=== PATIENT | female | born 1990 | race Hispanic/Latino ===

== ENCOUNTER 2017-05-21 10:59 | Emergency (ER) | payer OTHER ==
[2017-05-21 11:06] VITALS: TEMP 97.7
[2017-05-21] MEDS ORDERED: Sodium Chloride 0.9% 1,000 ML IV STA (11:14)
--- NOTE | 2017-05-21 11:51 | ED PDOC ---
HPI: Back Time Seen by Provider: 05/21/17 11:05 Chief Complaint (Nursing): Back Pain Chief Complaint (Provider): back pain History Per: Patient History/Exam Limitations: no limitations Onset/Duration Of Symptoms: Hrs (1), Sudden Onset Quality Of Discomfort: Sharp Severity: Moderate Previous Symptoms: Back Pain Exacerbating Factor(s): Turning, Movement, Sitting, Standing Additional Complaint(s): 26yo female c/o low and mid back pain onset acutely while at work prior to arrival. Was sitting in a chair at desk, turned and had sudden spasm/back which prevented her from moving mid/lower back. Denies radiation of pain to legs or arms. Denies neck pain, incontinence, urinary retention, fever, or weakness/ numbness. States has history of low back problems specifically around her menstration. 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 Past Medical History Reviewed: Historical Data, Vital Signs Vital Signs: Last Vital Signs Temp 97.7 F 05/21/17 11:03 Pulse 83 05/21/17 11:03 Resp 19 05/21/17 11:03 BP 122/76 05/21/17 11:03 Pulse Ox 100 05/21/17 11:03 - Medical History PMH: Back Problems - Surgical History Surgical History: No Surg Hx - Family History Family History: States: Other Other Family History: scoliosis - Living Arrangements Living Arrangements: With Friends/Others - Social History Current smoker - smoking cessation education provided: No Alcohol: Social - Home Medications Home Medications: Ambulatory Orders Medication Instructions Recorded Cyclobenzaprine [Cyclobenzaprine 10 mg PO Q8 PRN #9 tab 05/21/17 HCl] Naproxen [Naprosyn] 500 mg PO BID PRN #14 tablet 05/21/17 - Allergies Allergies/Adverse Reactions: Allergies Allergy/AdvReac Type Severity Reaction Status Date / Time Latex, Natural Rubber Allergy RASH Verified 05/21/17 11:02 Review of Systems ROS Statement: Except As Marked, All Systems Reviewed And Found Negative Constitutional: Negative for: Fever, Chills Cardiovascular: Negative for: Chest Pain, Orthopnea Respiratory: Negative for: Cough, Shortness of Breath Gastrointestinal: Negative for: Abdominal Pain Genitourinary Female: Negative for: Dysuria Musculoskeletal: Positive for: Back Pain. Negative for: Arm Pain, Leg Pain Skin: Negative for: Rash, Lesions Neurological: Negative for: Weakness, Numbness, Headache, Dizziness Psych: Positive for: Anxiety Physical Exam - Reviewed Nursing Documentation Reviewed: Yes Vital Signs Reviewed: Yes - Physical Exam Appears: Positive for: Well, Non-toxic, No Acute Distress Head Exam: Positive for: ATRAUMATIC, NORMAL INSPECTION, NORMOCEPHALIC Skin: Positive for: Normal Color, Warm, DRY Neck: Positive for: Normal, Painless ROM Cardiovascular/Chest: Negative for: Tachycardia Respiratory: Negative for: Respiratory Distress Pulses-Radial (L): 3+/4+ Pulses-Radial (R): 3+/4+ Gastrointestinal/Abdominal: Positive for: Soft. Negative for: Tenderness, Guarding Back: Positive for: Decreased ROM, Muscle Spasm Extremity: Negative for: Calf Tenderness, Swelling Neurologic/Psych: Positive for: Alert, Oriented, Gait (slow but steady), Other ( strength lower ext 5/5 b/l). Negative for: Motor/Sensory Deficits - Laboratory Results Result Diagrams: 05/21/17 12:23 05/21/17 12:23 - ECG O2 Sat by Pulse Oximetry: 100 Medical Decision Making Medical Decision Making: labs unremarkable Imaging reviewed and no acute fractures or dislocation, +mild scoliosis Improved over course of ED stay. Ambulated to bathroom. There was no signs neurologic emergency on re-eval and hence discharge with followup recommended. Father (physician in [place]) stated he arranged an MRI for her in the morning. Disposition - Clinical Impression Clinical Impression: Back pain - Patient ED Disposition Is Patient to be Admitted: No Counseled Patient/Family Regarding: Studies Performed, Diagnosis, Need For Followup - Disposition Referrals: Judah Soriano DO [[facility]] - Disposition: Routine/Home Disposition Time: 14:01 Condition: STABLE Additional Instructions: Return to ER for any worse or new symptoms. Recommend repeat bloodwork in 10days to assure resolution of mild hypercalcemia and abnormal LFTs. Recommend outpatient MRI if symptoms persist. Avoid heavy exertion or lifting until all symptoms resolve. Prescriptions: Cyclobenzaprine [Cyclobenzaprine HCl] 10 mg PO Q8 PRN #9 tab PRN Reason: Muscle Spasm Naproxen [Naprosyn] 500 mg PO BID PRN #14 tablet PRN Reason: Pain, Moderate (4-7) Instructions: Cyclobenzaprine (By mouth), Acute Low Back Pain (ED) Forms: [facility] ([employer])
[2017-05-21 12:27] LABS: BASO % 1.1 % (0.0-2.0); EOS % 0.6 % (0.0-4.0); HEMATOCRIT 40.5 % (34.0-47.0); LYMPH # 1.2 K/uL (1.0-4.3); LYMPH % 27.2 % (20.0-40.0); MEAN CELL VOLUME 98.4 fl (81.0-99.0); MEAN CORPUSCULAR HEMOGLOBIN 34.2 pg (27.0-31.0); MEAN CORPUSCULAR HGB CONC 34.8 g/dL (33.0-37.0); MEAN PLATELET VOLUME 8.3 fl (7.2-11.7); MONO # 0.5 K/uL (0.0-0.8); MONO % 11.7 % (0.0-10.0); NEUT # 2.6 K/uL (1.8-7.0); NEUT % 59.4 % (50.0-75.0); NRBC % 0.2 % (0.0-0.0); RED CELL DISTRIBUTION WIDTH 12.2 % (11.5-14.5); WHITE BLOOD COUNT 4.3 K/uL (4.8-10.8)
[2017-05-21 12:36] LABS: LIPASE 125 U/L (23-300); MAGNESIUM 1.9 MG/DL (1.6-2.3)
[2017-05-21 12:39] LABS: ALKALINE PHOSPHATASE 37 U/L (38-126); ALT/SGPT 53 U/L (9-52); AST/SGOT 39 U/L (14-36); BILIRUBIN,TOTAL 0.6 mg/dl (0.2-1.3); BLOOD UREA NITROGEN 12 mg/dl (7-17); CALCIUM 10.5 mg/dL (8.4-10.2); CARBON DIOXIDE 27 mmol/L (22-30); CHLORIDE 106 mmol/L (98-107); GFR AFRICAN-AMERICAN > 60; GLUCOSE,RANDOM 93 mg/dL (65-105); POTASSIUM 4.1 MMOL/L (3.6-5.0); SODIUM 144 mmol/l (132-148); TOTAL PROTEIN 8.4 G/DL (6.3-8.2)
[2017-05-21 12:40] LABS: ALB/GLOB RATIO 1.4 (1.0-2.1)
[2017-05-21 14:33] VITALS: BP 126/76; PULSE 70; RESP 18
--- NOTE | 2017-05-21 14:33 | RAD ---
PROCEDURE: Radiographs of the Lumbar Spine. HISTORY: back pain COMPARISON: No prior. FINDINGS: BONES: Normal anterior posterior alignment is appreciated however there is a moderate levoscoliotic lumbar spinal deformity appreciated. No fracture or spondylolisthesis. No destructive bony lesion appreciated. DISC SPACES: Unremarkable. OTHER FINDINGS: No spondylolysis identified throughout. IMPRESSION: Levoscoliotic spinal deformity. No fracture or spondylolisthesis identified.
--- NOTE | 2017-05-21 14:39 | RAD ---
HISTORY: back pain COMPARISON: No prior. FINDINGS: BONES: There is a mild dextroscoliotic inferior thoracic spinal deformity curve comprising the upper segment of an S-shaped thoracolumbar scoliotic deformity. No fracture or spondylolisthesis. There is straightening of the thoracic kyphosis. No destructive bony lesion appreciable. DISC SPACES: Normal. SOFT TISSUES: Normal. OTHER FINDINGS: None. IMPRESSION: Dextroscoliotic thoracic spine deformity as described above. Straightened thoracic kyphosis.
[2017-05-30 08:27] VITALS: O2SAT 100
== END 2017-05-21 14:33 | disposition home or self-care (01) ==
LOC: H.ER 10:59
DX: M54.9 Dorsalgia, unspecified (principal)
CPT/HCPCS: 72070; 72114; 80053; 81025; 83690; 83735; 84703; 85025; 96374; 99282; J1885; J7040